=== PATIENT | female | born 2000 | race Caucasian/White ===

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

== ENCOUNTER 2025-08-16 11:25 | Outpatient (REF) | payer OTHER, SELFPAY | END 2025-08-16 11:26 | disposition home or self-care (01) | LOC: NCHCN 11:25 | PROVIDERS: PCP Registered Nurse; Visit Provider Physician Assistant | DX: J02.9 Acute pharyngitis, unspecified (principal) | CPT/HCPCS: 87070 ==